=== PATIENT | female | born 1935 ===

== ENCOUNTER 2020-01-03 10:47 | Day surgery (SDC) | payer MEDICARE ==
[2020-01-03] MEDS ORDERED: Xylocaine-Mpf 2% 5 Ml Vial IJ ONE (10:48)
[2020-01-03] MEDS ORDERED: Depo-Medrol 40 MG/ML IM ONE (10:48)
[2020-01-03] MEDS ORDERED: Ketamine HCl 50 MG/ML ONE (11:54)
[2020-01-03] MEDS ORDERED: DIPRIVAN 200 MG/20 ML IV ONE (11:54)
--- NOTE | 2020-01-03 13:41 | XRAY ---
Indication: Bilateral L4-S1 MBB. Intraoperative fluoroscopy was provided for 18 seconds. Single digital spot image submitted for interpretation demonstrate posterior needle tips projecting over the expected left and right L4-S1 nerve roots. Correlate with intraoperative findings/report.
--- NOTE | 2020-01-03 13:45 | XRAY ---
18 seconds fluoroscopy time in surgery for bilateral L4-S1 MBB.
[2020-01-03] MEDS ORDERED: Lactated Ringers 1,000 ML IV ONE (15:15)
== END 2020-01-03 12:26 | disposition home or self-care (01) ==
LOC: SDC-PAIN 10:47
PROVIDERS: ATTEND Psychiatry & Neurology Pain Medicine
DX: M47.816 Spondylosis without myelopathy or radiculopathy, lumbar region (principal); Z79.899 Other long term (current) drug therapy
CPT/HCPCS: 64493; 64494; 72020; 77002; 99100; J1030; J2704